=== PATIENT | female | born 1975 | race Caucasian/White ===

== ENCOUNTER 2018-03-04 12:23 | Emergency (ER) | payer BC, MEDICAID ==
[~2018-03-04] VITALS: Ht 147.3 cm; Wt 84.8 kg
[2018-03-04 12:32] VITALS: Ht 147.3 cm; Wt 84.8 kg
[2018-03-04 13:56] VITALS: BP 133/73
== END 2018-03-04 13:55 | disposition home or self-care (01) ==
LOC: ED 12:23
DX: H60.91 Unspecified otitis externa, right ear (principal); H66.91 Otitis media, unspecified, right ear; Z90.710 Acquired absence of both cervix and uterus; Z86.2 Personal history of diseases of the blood and blood-forming organs and certain disorders involving the immune mechanism
CPT/HCPCS: J3010

== ENCOUNTER 2018-10-08 10:12 | Emergency (ER) | payer MEDICAID ==
[~2018-10-08] VITALS: Ht 149.9 cm; Wt 88.7 kg
[2018-10-08 10:30] VITALS: BP 124/68; Ht 149.9 cm; Wt 88.7 kg
== END 2018-10-08 12:55 | disposition home or self-care (01) ==
LOC: ED 10:12
DX: J10.1 Influenza due to other identified influenza virus with other respiratory manifestations (principal); Z86.2 Personal history of diseases of the blood and blood-forming organs and certain disorders involving the immune mechanism; Z98.890 Other specified postprocedural states
CPT/HCPCS: 87804; J1885; J7613